=== PATIENT | female | born 1980 | race African-American/Black ===

== ENCOUNTER 2016-10-26 21:05 | Emergency (ER) | payer OTHER ==
[2016-10-26 21:21] VITALS: BP 148/92; PULSE 81; TEMP 98.6; BMI 27.3
--- NOTE | 2016-10-26 21:52 | PDOC ---
History of Present Illness - General Chief Complaint: Eye Problem Stated Complaint: EYE PROBLEM/FEVER Time Seen by Provider: 10/26/16 21:31 History Source: Patient Exam Limitations: No Limitations - History of Present Illness Initial Comments: 10/26/16 21:46 36 yr female with right eye swollen , discharge redness started this morning. Pt also with runny nose and sneezing. Pt has a history of dialysis. Timing/Duration: 24 hours Past History - Past Medical History Allergies/Adverse Reactions: Allergies Allergy/AdvReac Type Severity Reaction Status Date / Time cephalexin monohydrate Allergy Verified 10/26/16 21:17 [From [employer]] Home Medications: Ambulatory Orders Amlodipine Besylate [Norvasc -] 10 mg PO DAILY 06/14/16 Labetalol HCl 300 mg PO BID 06/14/16 Calcium Acetate 667 mg PO ASDIR 10/26/16 Calcium Crb,Cit/D3/Min34/Keila [Citracal + Bone Density Tablet] 1 each PO ASDIR 10/26/16 Hydroxychloroquine Sulfate 200 mg PO ASDIR 10/26/16 Isoniazid 300 mg PO ASDIR 10/26/16 Sulfacetamide Sodium 10% [Bleph-10] 2 drop OD Q6H #1 bottle 10/26/16 Dialysis: Yes (, , ) Disorders: Yes (kidney dz) HTN: Yes - Immunization History Immunization Up to Date: Yes - Psycho/Social/Smoking Cessation Hx Suicidal Ideation: No Smoking History: Never smoked Have you smoked in the past 12 months: No Hx Alcohol Use: No Drug/Substance Use Hx: No Substance Use Type: None Review of Systems - Review of Systems Able to Perform ROS?: Yes Is the patient limited [place] proficient: No Constitutional: No: Symptoms Reported HEENTM: Yes: See HPI *Physical Exam - Vital Signs Last Vital Signs Temp Pulse Resp BP Pulse Ox 98.6 F 81 18 148/92 97 10/26/16 21:17 10/26/16 21:17 10/26/16 21:17 10/26/16 21:17 10/26/16 21:17 - Physical Exam General Appearance: Yes: Nourished, Appropriately Dressed HEENT: positive: EOMI, TMs Normal, Pharynx Normal, Other (right eye with greenish discharge, conjunctival redednned, swelling to upper lid, neg periorbiatl tenderness) Neck: positive: Supple. negative: Tender Respiratory/Chest: positive: Lungs Clear, Normal Breath Sounds Cardiovascular: positive: Regular Rhythm, Regular Rate Gastrointestinal/Abdominal: positive: Normal Bowel Sounds, Soft Musculoskeletal: positive: Normal Inspection Extremity: positive: Normal Capillary Refill, Normal Inspection, Normal Range of Motion Integumentary: positive: Normal Color, Dry, Warm Neurologic: positive: Fully Oriented, Alert, Normal Mood/Affect, Normal Response , Motor Strength 5/5 Medical Decision Making - Medical Decision Making 10/26/16 21:48 cc: right eye discharge, swelling to the upper lid itchy took benadryl today no vomiting or fever, no orbital tenderness EOMI no pain *DC/Admit/Observation/Transfer Diagnosis at time of Disposition: Conjunctivitis Qualifiers: Conjunctivitis type: acute Acute conjunctivitis type: bacterial Laterality: right Qualified Code(s): H10.31 - Unspecified acute conjunctivitis, right eye - Discharge Dispostion Disposition: HOME Condition at time of disposition: Good - Prescriptions Prescriptions: Sulfacetamide Sodium 10% [Bleph-10] 2 drop OD Q6H #1 bottle - Referrals Referrals: Derrick Dozier MD [Staff Physician] - - Patient Instructions Additional Instructions: cool compresses to the eye every 2hrs for 15 minutes use the eye drops as prescribed take benadryl as directed for swelling follow with the eye doctor in 48hrs fi no improvement Return to ER for any fever, chills worsening symptoms
== END 2016-10-26 21:57 | disposition home or self-care (01) ==
LOC: JERFT 21:05
DX: H10.31 Unspecified acute conjunctivitis, right eye (principal); I12.0 Hypertensive chronic kidney disease with stage 5 chronic kidney disease or end stage renal disease; N18.6 End stage renal disease; N17.8 Other acute kidney failure; Z99.2 Dependence on renal dialysis
CPT/HCPCS: 87070; 87184; 87205; 99281-25

== ENCOUNTER 2024-11-18 23:14 | Emergency (ER) | payer OTHER ==
[2024-11-18 23:21] VITALS: BP 140/78; PULSE 72; RESP 18; TEMP 98.2; BMI 29.2
[2024-11-19] MEDS ORDERED: ACETAMINOPHEN 500 MG TABLET (FP) ONE (00:12)
[2024-11-19] MEDS: ACETAMINOPHEN 500 MG TABLET (FP) PO ONE (00:20)
[2024-11-19] MEDS: ALBUTEROL SO4 2.5/IPRATROPIUM 0.5 INH SOL 3 ML VIAL.NEB. NEB SCH (00:20)
[2024-11-19] MEDS: ALBUTEROL SO4 HFA INHALER IH PRN (01:03)
== END 2024-11-19 01:03 | disposition home or self-care (01) ==
LOC: JER 23:14
PROC: 3E0F7GC Introduction of Other Therapeutic Substance into Respiratory Tract, Via Natural or Artificial Opening (ICD-10-PCS; principal; 2024-11-19)
DX: J45.909 Unspecified asthma, uncomplicated (principal); R50.9 Fever, unspecified; R09.3 Abnormal sputum; R09.81 Nasal congestion; R51.9 Headache, unspecified; R06.02 Shortness of breath; R07.89 Other chest pain; R05.9 Cough, unspecified; H92.02 Otalgia, left ear
CPT/HCPCS: 0241U-QW; 71046-TC-FY; 99284-25